=== PATIENT | female | born 1995 | race Caucasian/White ===

== ENCOUNTER → 2016-05-24 | Outpatient (CLI) | payer BC ==
[2016-05-24 10:51] LABS: PHOSPHORUS 3.7 mg/dl (2.5-4.9)
[2016-05-24 10:56] LABS: CALCIUM 9.3 mg/dl (8.4-10.2); CREATININE 0.71 mg/dl (0.44-1.00); POTASSIUM 4.3 mmol/L (3.5-5.1)
[2016-05-24 21:19] LABS: THYROID STIMULATING HORMONE 1.96 MIU/L (0.465-4.680)
== END | disposition home or self-care (01) ==
LOC: LAB 09:44 → EDSTATUS 05-28 07:30
PROVIDERS: ATTEND Orthopaedic Surgery
DX: M19.072 Primary osteoarthritis, left ankle and foot (principal); M19.071 Primary osteoarthritis, right ankle and foot; M18.0 Bilateral primary osteoarthritis of first carpometacarpal joints
CPT/HCPCS: 80048; 82306; 84100; 84439; 84443

== ENCOUNTER 2016-05-28 05:41 | Day surgery (SDC) | payer BC ==
[~2016-05-28] VITALS: Ht 167.6 cm; Wt 97.5 kg
[2016-05-28] VITALS (20 sets, daily range): BP systolic 103–126; BP diastolic 52–61; PULSE 70–96; RESP 14–18; Ht 167.6 cm; Wt 97.5 kg
--- NOTE | 2016-05-28 07:06 | HPN ---
Date/Time of Note Date/Time of Note DATE: 05/28/16 TIME: 07:05 Interval H&P Admission Note Pt. seen H&P reviewed: No system changes ALEXANDRA LOPEZ MD May 28, 2016 07:05
[2016-05-28] MEDS ORDERED: HYDROmorphONE 2 MG/ML SYG ONE (07:26)
[2016-05-28] MEDS ORDERED: MIDAZOLAM 1 MG/ML 2 ML INJ ONE (07:26)
[2016-05-28] MEDS ORDERED: ROPIVACAINE 0.5 % 30 ML VIAL ONE ×2 (07:27→09:45)
[2016-05-28] MEDS ORDERED: LIDOCAINE 1% (MDV) 20 ML INJ ONE (07:34)
[2016-05-28] MEDS ORDERED: CEFAZOLIN 1 GM INJ ONE (07:55)
[2016-05-28] MEDS ORDERED: DEXAMETHASONE 4 MG/ML 1 ML INJ ONE (08:03)
[2016-05-28] MEDS ORDERED: PHENYLephrine (100 MCG/ML) 5ML SYG ONE (08:03)
[2016-05-28] MEDS ORDERED: FAMOTIDINE 20 MG INJ ONE (08:03)
[2016-05-28] MEDS ORDERED: ONDANSETRON 4 MG INJ ONE (08:03)
[2016-05-28] MEDS ORDERED: POLYMYXIN/BACITRACIN 1L IRRIG ONE (09:24)
[2016-05-28] MEDS ORDERED: THROMBIN 5000 UNIT VIAL ONE (09:24)
[2016-05-28] MEDS ORDERED: CA CHLORIDE 10% 10 ML SYRINGE ONE (09:24)
[2016-05-28] MEDS ORDERED: POVIDONE IODINE 10% 28.4 GM OINT ONE (09:45)
[2016-05-28] MEDS ORDERED: HYDROmorphONE (0.2 MG/ML) 10ML SYG IV PRN ×3 (10:00)
[2016-05-28] MEDS ORDERED: MEPERIDINE 25 MG INJ IV PRN (10:00)
[2016-05-28] MEDS ORDERED: ONDANSETRON 4 MG INJ IV PRN ×2 (10:00→10:30)
[2016-05-28] MEDS ORDERED: SOD CHLORIDE 0.9% 1,000 ML IV SCH (10:14)
[2016-05-28] MEDS ORDERED: morphine 2 MG INJ IV PRN (10:30)
[2016-05-28] MEDS ORDERED: OXYCODONE/ACETAMINOPHEN (5/325) TAB PO PRN ×2 (10:30)
--- NOTE | 2016-05-28 13:15 | RADRPT ---
PROCEDURE: Right foot ORIF surgical procedure CLINICAL INDICATION: Trauma, pain. TECHNIQUE: Intraoperative fluoroscopic images for surgical guidance were obtained. 9 views of the right forehead were submitted for interpretation. COMPARISON: None available. FINDINGS: Intraoperative fluoroscopic images demonstrate placement of compression screw transfixing proximal r ight fifth metatarsal fracture. Alignment at the fracture site appears satisfactory. Procedure was performed by Dr. Calvert. 40 seconds of fluoroscopy time was utilized for the procedure. IMPRESSION: 1. Successful right fifth metatarsal ORIF procedure. RPTAT: QQ .Bryson Nye MD, Date Time Electronically viewed and signed by .Bryson Nye MD, on 05/28/2016 13:14 .M/
--- NOTE | 2016-05-28 14:12 | OPR ---
DATE OF OPERATION: 05/28/2016 PREOPERATIVE DIAGNOSES: Zone 2 to 3 Zaldivar fracture, right foot. POSTOPERATIVE DIAGNOSIS: Zone 2 to 3 Zaldivar fracture, right foot. POSTOPERATIVE DIAGNOSIS: Zone 2 to 3 Zaldivar fracture, right foot. NAME OF OPERATION: 1. Reduction and internal fixation of the right 5th metatarsal Zaldivar fracture with a 45 mm x 4.5 mm [employer] screw. 2. Insertion of Ignite and PRP into the fracture site to facilitate healing. 3. Use of fluoroscopy to verify position and alignment of the guide pin and the screw, and verify r eduction of the fracture. 4. Short leg cast. SURGEON: Alexandra Calvert MD SIGNAL INTELLIGENCE ANALYST: Lio Barakat ANESTHESIA: General with popliteal block. TOURNIQUET TIME: 65 minutes. DESCRIPTION OF PROCEDURE: The patient taken to the operating room, placed in supine position. Sati sfactory popliteal block was given, satisfactory general anesthesia administered, 2 grams Ancef intr avenously. The right foot was prepped and draped in the usual manner. Fluoroscope was brought in. We marked the fracture site in the base of 5th metatarsal. Incision was made from the base of the 5th metatarsal and extended proximally several centimeters. Dissection carried down to subcutaneou s tissue. Neurovascular structures were elevated out of the field. At the interval between the per hansen brevis insertion and the plantar fascia band, we released this, elevated off the base of the 5 th metatarsal. Fluoroscope was brought in. Took the guide pin from the [employer] 5th metatars al screw set, placed the guide pin high and inside. We then advanced it, checked it in AP and later al planes until it was perfectly lined up in both AP, oblique and lateral planes. We measured the l ength of the screw. To be appropriate would be 45; 40 was going to be a little short. We then dril led and then tapped the shaft. The tap was quite tight with a 4.5 tap. We felt that a 5.5 screw wo uld be too large and could possibly blow out the shaft. Simultaneously, the patient's 60 mL of blood was aspirated sterilely. It was then spun down by the ____ people and PRP was made, both with platelet-rich plasma and the platelet-poor plasma. We mixed the [employer] Ignite demineralized bone graft with 5 mL of the PRP, put it in the syringe and injected down the shaft, and then put a 45 mm x 4.5 mm screw. Excellent fixation was obtained. Exc ellent position was noted on the AP, oblique and lateral radiographs. The screw was in place in all 3 radiographs and there was good compression at the fracture site. The remaining PRP Ignite mixtur e was placed around the fracture site itself subcutaneously. Final fluoroscopic radiographs in all 3 planes showed good position and alignment of the screw with excellent reduction of the fracture. The wounds were irrigated with antibiotic solution. The peroneal brevis was sewn back to the planta r fascia slip with a running 3-0 PDS. Wounds irrigated with antibiotic solution and then with the P RP. Subcutaneous tissue closed, and then platelet-poor plasma was irrigated in the subcutaneous tis jackie. Subcutaneous tissue closed with 3-0 undyed Vicryl. More platelet-poor was placed underneath t he subcutaneous tissue. Skin was closed with 4-0 black nylon. Platelet-poor was placed over the wo und as well as Betadine ointment and Xeroform. A compression dressing and short leg cast was placed in neutral position. At the end of the procedure the sponge and needle count was correct. Patient tolerated the procedure well and the cast was split in the recovery room. Dictated By: ALEXANDRA GEE/RUEL Conf#: [id number] DID#: [id number]
== END 2016-05-28 12:26 | disposition home or self-care (01) ==
LOC: SDS 05:41
PROVIDERS: ATTEND Orthopaedic Surgery
DX: S92.351G Displaced fracture of fifth metatarsal bone, right foot, subsequent encounter for fracture with delayed healing (principal); X58.XXXD Exposure to other specified factors, subsequent encounter
CPT/HCPCS: 28485; 73660; 84703; 86999; J0690; J1100; J1170; J2250; J2370; J2405; J2795

== ENCOUNTER → 2017-11-14 | Outpatient (CLI) | END | disposition home or self-care (01) ==